=== PATIENT | male | born 1985 | race Hispanic/Latino ===

== ENCOUNTER → 2021-06-07 | Outpatient (CLI) | payer OTHER ==
[~2021-06-07] VITALS: Ht 27.9 cm; Wt 132.9 kg
== END | disposition home or self-care (01) ==
LOC: DTH 10:19
PROVIDERS: ATTEND Surgery
DX: E66.01 Morbid (severe) obesity due to excess calories (principal); I10 Essential (primary) hypertension; E78.00 Pure hypercholesterolemia, unspecified; K76.0 Fatty (change of) liver, not elsewhere classified; E66.3 Overweight; Z68.39 Body mass index [BMI] 39.0-39.9, adult
CPT/HCPCS: 97802

== ENCOUNTER 2021-06-15 17:33 | Emergency (ER) | payer OTHER ==
[~2021-06-15] VITALS: Ht 180.3 cm; Wt 131.5 kg
[2021-06-15 17:48] VITALS: BP 157/102
[2021-06-15] MEDS ORDERED: IBUPROFEN 800 MG TAB PO ONE (18:00)
[2021-06-15] MEDS ORDERED: IBUP-1552 PO (18:19)
== END 2021-06-15 18:43 | disposition home or self-care (01) ==
LOC: EDH 17:33
DX: S80.11XA Contusion of right lower leg, initial encounter (principal); S80.811A Abrasion, right lower leg, initial encounter; R03.0 Elevated blood-pressure reading, without diagnosis of hypertension; E66.9 Obesity, unspecified; Z68.41 Body mass index [BMI] 40.0-44.9, adult; Z79.1 Long term (current) use of non-steroidal anti-inflammatories (NSAID); X58.XXXA Exposure to other specified factors, initial encounter; Y93.89 Activity, other specified; Y92.89 Other specified places as the place of occurrence of the external cause; Y99.8 Other external cause status
CPT/HCPCS: 73590